=== PATIENT | female | born 1955 | race Caucasian/White ===

== ENCOUNTER → 2021-10-26 | Outpatient (CLI) | payer MEDICARE ==
[2021-10-26 12:19] LABS: HCT 45.7 % (34.0-46.0); HGB 15.1 gm/dL (11.4-16.0); MCH 31.7 pg (25.0-35.0); MCHC 32.9 g/dL (31.0-37.0); MCV 96.2 fL (80.0-100.0); Mean Platelet Volume 7.4; Platelet Count 222 k/uL (150-450); RBC 4.75 m/uL (3.80-5.40); RDW 13.4 % (11.5-15.5); WBC 8.2 k/uL (3.8-10.6)
[2021-10-26 12:34] LABS: Potassium 5.2 mmol/L (3.5-5.1)
== END | disposition home or self-care (01) ==
LOC: LABPAT 11:02
PROVIDERS: ATTEND Internal Medicine Interventional Cardiology
DX: Z01.812 Encounter for preprocedural laboratory examination (principal); I48.19 Other persistent atrial fibrillation
CPT/HCPCS: 36415; 80051; 82565; 84520; 85027

== ENCOUNTER 2021-10-27 06:10 | Day surgery (SDC) | payer MEDICARE ==
[2021-10-26 09:20] VITALS: BMI 34.3
[~2021-10-27 06:10] MED LIST: LACTATED RINGERS 1,000 ML IV SCH; SODIUM CHLORIDE 0.9% 1,000 ML IV SCH
[2021-10-27] MEDS ORDERED: SODIUM CHLORIDE 0.9% 500 ML 500 ML IV ONE (06:50)
[2021-10-27] MEDS ORDERED: PROPOFOL 10 MG/ML 20 ML VIAL IV ONE (07:25)
[2021-10-27 07:51] LABS: Calcium 9.8 mg/dL (8.4-10.2); Potassium 4.2 mmol/L (3.5-5.1)
[2021-10-27 08:10] VITALS: TEMP 96.9
--- NOTE | 2021-10-27 12:54 | PCN ---
PROCEDURE NOTE ELECTRICAL CARDIOVERSION REPORT: DATE OF SERVICE: 10/27/2021 PROCEDURE: Electrical cardioversion. INDICATION: Persistent atrial fibrillation, symptomatic. Mrs. Zena Hdez is a 66-year-old lady with a relatively new-onset symptomatic atrial fibrillation with some decrease in LV function and fatigue, shortness of breath, palpitations. After initiating her on amiodarone and achieving reasonable rate control with full anticoagulation, she was brought in for cardioversion today. Risks, benefits, options and rationale were explained. PROCEDURE NOTE: Under the influence of [id number]-[id number] intravenous anesthetic agent with the attendance of the anesthesiologist, a single 200-joule shock was delivered with anterior and posterior patches. Patient converted to sinus rhythm. She was in sinus bradycardia at 52 beats per minute, hemodynamically stable and neurologically intact. This was a successful electrical cardioversion. She will be discharged later on today and I will see her this Tuesday. She will be on amiodarone 200 mg b.i.d. and I will reduce the metoprolol to 25 mg daily. She will be discharged after she is up and about and ambulatory. MMODL / IJN: [id number] /
[2021-10-27 16:18] VITALS: BP 138/72; PULSE 55; RESP 16
== END 2021-10-27 10:50 | disposition home or self-care (01) ==
LOC: CATHCVL 06:10
PROVIDERS: ATTEND Internal Medicine Interventional Cardiology
DX: I48.19 Other persistent atrial fibrillation (principal); I10 Essential (primary) hypertension; E78.5 Hyperlipidemia, unspecified; E78.00 Pure hypercholesterolemia, unspecified; Z20.822 Contact with and (suspected) exposure to COVID-19; Z82.49 Family history of ischemic heart disease and other diseases of the circulatory system; Z79.01 Long term (current) use of anticoagulants; Z79.899 Other long term (current) drug therapy; Z88.8 Allergy status to other drugs, medicaments and biological substances
CPT/HCPCS: 92960; 80048; 87635; J2704; 93005

== ENCOUNTER → 2023-01-26 | Outpatient (CLI) | payer MEDICARE ==
[2023-01-26 18:26] LABS: African American GFR (CKD) 59.5 (60.0-200.0); Albumin 4.7 g/dL (3.8-4.9); Albumin/Globulin Ratio 2.28 (1.60-3.17); Anion Gap 10.8 mmol/L (10.00-18.00); BUN/Creat Ratio 17.93 Ratio (12.00-20.00); Blood Urea Nitrogen 19.9 mg/dL (9.0-27.0); Calcium 10.2 mg/dL (8.7-10.3); Carbon Dioxide 29.4 mmol/L (20.0-27.5); Globulin 2.1 g/dL (1.6-3.3); Non-African American GFR(CKD) 51.3 (60.0-200.0); Potassium 4.6 mmol/L (3.5-5.5); T4, Free (Free Thyroxine) 1.32 ng/dL (0.800-1.800); Total Bilirubin 0.6 mg/dL (0.30-1.20); Total Protein 6.7 g/dL (6.2-8.2)
== END | disposition home or self-care (01) ==
LOC: LABWHC1 12:16
PROVIDERS: ATTEND Internal Medicine Clinical Cardiac Electrophysiology
DX: I48.91 Unspecified atrial fibrillation (principal)
CPT/HCPCS: 36415; 80053; 84439; 84443

== ENCOUNTER → 2023-02-10 | Outpatient (CLI) | payer MEDICARE ==
[2023-02-11 00:09] LABS: African American GFR (CKD) 60.2 (60.0-200.0); Anion Gap 8.3 mmol/L (10.00-18.00); Blood Urea Nitrogen 16.5 mg/dL (9.0-27.0); Carbon Dioxide 28.7 mmol/L (20.0-27.5); Non-African American GFR(CKD) 51.9 (60.0-200.0); Potassium 5.7 mmol/L (3.5-5.5)
[2023-02-11 01:30] LABS: HCT 46.5 % (37.2-46.3); HGB 14.9 g/dL (12.0-15.0); MCH 30.9 pg (27.0-32.0); MCV 96.5 fL (80.0-97.0); Mean Platelet Volume 10.8 fL (9.5-12.2); NRBC Per 100 WBC 0 /100 WBCS (0.0-0.0); Platelet Count 240 X 10*3/uL (140-440); RBC 4.82 X 10*6/uL (4.10-5.20); RDW 13.1 % (11.5-14.5); WBC 6.37 X 10*3/uL (4.50-10.00)
== END | disposition home or self-care (01) ==
LOC: LABPAT 11:55
PROVIDERS: ATTEND Internal Medicine Clinical Cardiac Electrophysiology
DX: Z01.812 Encounter for preprocedural laboratory examination (principal); I48.0 Paroxysmal atrial fibrillation
CPT/HCPCS: 80051; 82565; 84520; 85027

== ENCOUNTER 2023-02-22 11:12 | Day surgery (SDC) | payer MEDICARE ==
[2023-02-17 12:40] VITALS: BMI 34.7
[~2023-02-22 11:12] MED LIST changes: +DEXAMETHASONE SOD PHOSPHATE 4 MG/ML 1 ML VIAL IV ONE; -LACTATED RINGERS 1,000 ML IV SCH; +LIDOCAINE 1% (10MG/ML) FOR IV START INTRADERMA PRN; +ONDANSETRON 4 MG/2 ML VIAL IVP ONE; +SODIUM CHLORIDE 0.9% 1,000 ML IV ONE; -SODIUM CHLORIDE 0.9% 1,000 ML IV SCH; +fentaNYL (PF) 50 MCG/ML 2 ML AMP IV PRN
[2023-02-22] MEDS ORDERED: HEPARIN SODIUM,PORCINE 10,000 UNIT/ML 1 ML VIAL ONE (13:16)
[2023-02-22] MEDS ORDERED: LIDOCAINE 2% INJ 20 MG/ML (2 ML VIAL) ONE (13:16)
[2023-02-22] MEDS ORDERED: fentaNYL (PF) 50 MCG/ML 2 ML AMP ONE (13:16)
[2023-02-22] MEDS ORDERED: ONDANSETRON 4 MG/2 ML VIAL ONE (13:16)
[2023-02-22] MEDS ORDERED: HEPARIN SOD,PORK IN 0.45% NACL 25,000 UNIT in 0.45% NACL 1 250ML.BAG IV ONE (13:16)
[2023-02-22] MEDS ORDERED: MIDAZOLAM 2 MG/2 ML VIAL ONE (13:16)
[2023-02-22] MEDS ORDERED: PROPOFOL 10 MG/ML 20 ML VIAL IV ONE (13:16)
[2023-02-22] MEDS ORDERED: SUCCINYLCHOLINE CHLORIDE 200 MG/10 ML VIAL IV ONE (13:16)
[2023-02-22] MEDS ORDERED: LIDOCAINE 1% INJ 10MG/ML (20 ML MDV) ONE (13:29)
[2023-02-22] MEDS ORDERED: LIDOCAINE 1% INJ 10MG/ML (20 ML MDV) SQ ONE (13:50)
[2023-02-22] MEDS ORDERED: SODIUM CHLORIDE 0.9% 500 ML 500 ML IV ONE (16:00)
[2023-02-22] MEDS ORDERED: IOPAMIDOL-300 100ML BTL INJ ONE (16:01)
[2023-02-22] MEDS ORDERED: FUROSEMIDE 20 MG TAB PO PRN (16:28)
[2023-02-22] MEDS ORDERED: ACETAMINOPHEN TAB 325 MG TAB PO PRN (16:29)
[2023-02-22] MEDS ORDERED: ACETAMINOPHEN IV (For NPO) 1,000 MG in EMPTY BAG 1 BAG IVPB ONE (16:35)
[2023-02-22] MEDS: SODIUM CHLORIDE 0.9% 1,000 ML IV SCH (17:33)
[2023-02-22] MEDS: LACTATED RINGERS 1,000 ML IV SCH (17:33)
--- NOTE | 2023-02-22 18:51 | P.HPCAR ---
History of Present Illness This is Dr. Shane dictating an H/P on this patient The patient was interviewed and examined IMPRESSION / ASSESSMENT: Persistent atrial fibrillation with tiredness fatigue shortness of breath and presyncope Palpitations associated with RVR Failed treatment with amiodarone and electrical cardioversion Developed a cardiomyopathy, ejection fraction 35%, during atrial fibrillation which improved and normalized during sinus rhythm Hypertension Normal TSH PLAN: A. fib ablation for persistent symptomatic atrial fibrillation HPI Patient continues to complain of palpitations despite amiodarone and rate control medications From time to time she may be presyncopal but has not had syncope denies she complains of tiredness shortness of breath and fatigue ROS: No fever chills or rigors, no cough, phlegm or expectoration, no nausea, vomiting or diarrhea, no hematuria, dysuria, no musculoskeletal complaints, no strokes or seizures, no skin lesions. EXAMINATION: On examination blood pressure is 121/94 mmHg pulse rate is in the low 100s between 100 and 120 beats a minute at rest line afebrile Breath sounds are reduced bilaterally but no rhonchi no crackles Heart sounds are irregular no murmurs No JVD Soft abdomen Extremities warm no edema REVIEW OF LABS, ECG & MEDICAL DATA Medications include hydrochlorothiazide, simvastatin, metoprolol tartrate, losartan, ELIQUIS, amiodarone and Lasix Physical Exam Vitals: Vital Signs Temp Pulse Pulse Pulse Resp BP BP 02/22/23 18:15 69 14 109/71 02/22/23 17:45 67 14 110/72 02/22/23 17:15 98.0 F 64 14 114/72 02/22/23 16:47 59 L 16 02/22/23 16:31 57 L 16 02/22/23 16:16 97 F L 57 L 18 02/22/23 11:37 98.8 F 109 H 16 121/94 BP Pulse Ox 02/22/23 18:15 96 02/22/23 17:45 95 02/22/23 17:15 96 02/22/23 16:47 133/79 98 02/22/23 16:31 133/79 100 02/22/23 16:16 137/80 100 02/22/23 11:37 100 Intake and Output 02/22/23 02/22/23 02/22/23 06:59 14:59 22:59 Intake Total 975 100 Balance 975 100 Intake: IV 975 100 Other: Weight 98.5 kg Past Medical History Past Medical History: Atrial Fibrillation, Atrial Flutter, Cancer, Fibromyalgia, GERD/Reflux, Hyperlipidemia, Hypertension, Musculoskeletal Disorder, O steoarthritis (OA) Additional Past Medical History / Comment(s): hx. endometrial sarcoma, bulging discs, back pain, CRPS(chronic response pain syndrome) History of Any Multi-Drug Resistant Organisms: None Reported Past Surgical History: Hysterectomy, Joint Replacement, Orthopedic Surgery, Tonsillectomy, Tubal Ligation Additional Past Surgical History / Comment(s): arthroscopies mk knees, mk knee replacements, emergent repair of spleen due to tear after colonoscopy, D & C, Past Anesthesia/Blood Transfusion Reactions: No Reported Reaction Smoking Status: Never smoker - Past Family History Brother(s) Family Medical History: Cancer Additional Family Medical History / Comment(s): 1 BROTHER-MELANOMA. 1 BROTHER- THROAT/MOUTH CANCER Sister(s) Family Medical History: Cancer Additional Family Medical History / Comment(s): 1 SISTER-BLADDER CANCER. 1 SISTER-LUNG CANCER Physical Examination Vital Signs Temp Pulse Pulse Pulse Resp BP BP 02/22/23 18:15 69 14 109/71 02/22/23 17:45 67 14 110/72 02/22/23 17:15 98.0 F 64 14 114/72 02/22/23 16:47 59 L 16 02/22/23 16:31 57 L 16 02/22/23 16:16 97 F L 57 L 18 02/22/23 11:37 98.8 F 109 H 16 121/94 BP Pulse Ox 02/22/23 18:15 96 02/22/23 17:45 95 02/22/23 17:15 96 02/22/23 16:47 133/79 98 02/22/23 16:31 133/79 100 02/22/23 16:16 137/80 100 02/22/23 11:37 100 Intake and Output 02/22/23 02/22/23 02/22/23 06:59 14:59 22:59 Intake Total 975 100 Balance 975 100 Intake: IV 975 100 Other: Weight 98.5 kg Results 02/22/23 11:32 Comprehensive Metabolic Panel 02/22/23 Range/Units 11:32 Potassium 4.6 (3.5-5.1) mmol/L Current Medications Generic Name Dose Route Start Last Admin Trade Name Freq PRN Reason Stop Dose Admin Acetaminophen 650 mg 02/22/23 16:29 Acetaminophen Tab 325 Mg Tab PO 03/24/23 16:30 Q6HR PRN Mild Pain (Scale 1 to 3) Amiodarone HCl 100 mg 02/23/23 09:00 Amiodarone 100 Mg Tab PO 03/25/23 09:01 DAILY [facility] Apixaban 5 mg 02/22/23 21:00 Apixaban 5 Mg Tab PO 03/24/23 21:01 BID [facility] Protocol Atorvastatin Calcium 10 mg 02/22/23 21:00 Atorvastatin 10 Mg Tab PO 03/24/23 21:01 [facility] Fentanyl Citrate 50 mcg 02/22/23 07:00 Fentanyl (Pf) 50 Mcg/Ml 2 Ml Amp IV 02/22/23 23:00 Q3M PRN Phase I - Pain Control Furosemide 20 mg 02/22/23 16:28 Furosemide 20 Mg Tab PO 03/24/23 16:29 DAILY PRN Edema Hydrochlorothiazide 25 mg 02/23/23 09:00 Hydrochlorothiazide 25 Mg Tab PO 03/25/23 09:01 DAILY [facility] Sodium Chloride 1,000 mls @ 20 mls/hr 02/22/23 05:54 02/22/23 17:33 Saline 0.9% IV 03/24/23 05:55 Not Given .Q24H [facility] Lactated Ringer's 1,000 mls @ 20 mls/hr 02/22/23 05:54 02/22/23 17:33 Lactated Ringers IV 03/24/23 05:55 Not Given .Q24H [facility] Lidocaine HCl 0.1 ml 02/22/23 05:54 Lidocaine 1% (10mg/Ml) For Iv Start INTRADERMA 03/24/23 05:55 PER PROTOCOL PRN IV Start Losartan Potassium 50 mg 02/23/23 09:00 Losartan 50 Mg Tab PO 03/25/23 09:01 DAILY [facility] Metoprolol Tartrate 50 mg 02/22/23 21:00 Metoprolol Tartrate 50 Mg Tab PO 03/24/23 21:01 BID [facility] Sodium Chloride 12 ml 02/22/23 16:29 Sodium Chloride 0.9% Flush 10 Ml Syringe IV 03/24/23 16:30 Q12HR PRN Line Flush Intake and Output 02/22/23 02/22/23 02/22/23 06:59 14:59 22:59 Intake Total 975 100 Balance 975 100 Intake: IV 975 100 Other: Weight 98.5 kg Patient Weight 02/23/23 06:59 Weight 98.5 kg 02/22/23 11:32
--- NOTE | 2023-02-22 18:55 | P.EPPROC ---
- EP Procedure Note Electrophysiology Procedure Note: PROCEDURE A. fib ablation with pulmonary vein isolation, left atrial roof line and left atrial septal ablation DIAGNOSIS Atrial fibrillation, symptomatic, refractory to therapy, persistent RESULT No left atrial appendage mass seen on intracardiac echo Successful A. fib ablation/pulmonary vein isolation of all veins using cryo- ablation Complete entrance block in all 4 veins confirmed Linear ablation of the left atrial roof Ablation of the left atrial septum No evidence for phrenic nerve injury Esophageal deflection YES Electrical cardioversion with a synchronized shock across the chest YES PROCEDURE DETAILS Written informed consent prior to procedure. Patient brought to the EP lab. General anesthesia given. Heparin administered. A city maintained above 300 seconds Both groins prepped and draped per protocol and venous sheaths placed. Esophagus intubated, circa catheter for temperature monitoring an endoscope for possible esophageal deflection. Phrenic nerve monitoring performed. Esophageal temperature monitoring performed. Esophageal deflection performed if circa catheter overlapping with the balloon or circa temperature less than 27.5C Intracardiac echocardiography performed. Pericardium evaluated. Left atrial appendage evaluated. Left atrium evaluated along with pulmonary veins Transseptal catheterization performed under fluoroscopic guidance and intracardiac echo guidance Cryoablation sheath exchanged, balloon catheter along with achieve catheter placed in the left atrium. Pulmonary veins isolated in the following sequence: Left superior pulmonary vein followed by left inferior pulmonary vein, followed by right inferior pulmonary vein and lastly right superior pulmonary vein. Phrenic nerve stimulation along with capture thresholds within the SVC and right superior pulmonary vein to identify the phrenic nerve proximity to the cryo- balloon. Pulmonary veins isolated and confirmed with entrance and exit block. Phrenic nerve integrity confirmed at the end of the procedure Ablation of the left atrial roof performed with sequential lesions from the left superior to the right superior pulmonary veins. Ablation of the electrograms confirmed Ablation of the left atrial septum performed with cannulation of the superior branch of the right inferior or the inferior branch of the right superior vein to achieve ablation of the posterior septum of the left atrium. Ablation of electrograms confirmed Electrical cardioversion performed for persistence of atrial fibrillation despite successful ablation. Diagnostic catheters for the high right atrium, His bundle, coronary sinus placed. LA and RA pressures recorded RA pressure: 10/8 LA pressure: 16/10 Diagnostic EP study with coronary sinus pacing and recording Baseline measurements: After electrical cardioversion, AH interval 80 ms, HV interval 54 ms QRS 91 ms, AR interval 142 ms and QT interval 380 ms Venous sheaths were removed and hemostasis assured with a closure device. Patient extubated and transferred to recovery PROCEDURES PERFORMED Diagnostic EP study CS pacing and recording Left and right transseptal catheterization Catheter the mapping of the tachycardia Intracardiac echocardiography Pulmonary vein isolation with transseptal and comprehensive EPS, [id number] Left atrial roof line, +[id number] Linear ablation, left atrium septum, +[id number] Electrical cardioversion with a synchronized shock across the chest [id number]
[2023-02-22] MEDS ORDERED: ATORVASTATIN 10 MG TAB PO SCH (21:00)
[2023-02-22] MEDS: METOPROLOL TARTRATE 50 MG TAB PO SCH (22:12)
[2023-02-22] MEDS: APIXABAN 5 MG TAB PO SCH (22:12)
[2023-02-23] MEDS: SODIUM CHLORIDE 0.9% 1,000 ML IV SCH (00:29)
[2023-02-23] MEDS: LACTATED RINGERS 1,000 ML IV SCH (00:29)
[2023-02-23 07:45] VITALS: BP 104/65; PULSE 58; RESP 18; TEMP 97.9
[2023-02-23] MEDS ORDERED: LOSARTAN 50 MG TAB PO SCH (09:00)
[2023-02-23] MEDS: METOPROLOL TARTRATE 50 MG TAB PO SCH (09:00)
[2023-02-23] MEDS: APIXABAN 5 MG TAB PO SCH (09:00)
[2023-02-23] MEDS ORDERED: AMIODARONE 100 MG TAB PO SCH (09:00)
[2023-02-23] MEDS ORDERED: hydroCHLOROthiazide 25 MG TAB PO SCH (09:00)
--- NOTE | 2023-02-23 11:08 | P.DS ---
Providers Attending physician: Wilian Shane Primary care physician: [facility] [place] Hospital Course: This is a 67-year-old female who underwent atrial fibrillation ablation along with electrical cardioversion yesterday with Dr. Shane. Patient is maintaining sinus mechanism this morning. Heart rates are in the 50s. Her home dose of metoprolol has been decreased to 50 mg twice a day. She was instructed to continue all her additional cardiac medications. She was deemed stable for discharge home today by Svitlana. Discharge diagnosis #1 persistent atrial fibrillation, status post ablation and electrocardioversion Nurse practitioner note has been reviewed by physician. Signing provider agrees with the documented findings, assessment, and plan of care. Plan - Discharge Summary Discharge Rx Participant: No New Discharge Prescriptions: New Metoprolol Tartrate [Lopressor] 50 mg PO BID tab Continue Cholecalciferol [Vitamin D3 (25 Mcg = 1000 Iu)] 25 mcg PO DAILY Apixaban [Eliquis] 5 mg PO BID Amiodarone [Cordarone] 100 mg PO DAILY Losartan [Cozaar] 50 mg PO DAILY Simvastatin [Zocor] 10 mg PO HS Loratadine [Claritin] 10 mg PO DAILY PRN PRN Reason: allergies Furosemide [Lasix] 20 mg PO DAILY PRN PRN Reason: Edema hydroCHLOROthiazide [Hydrodiuril] 25 mg PO DAILY Multivit with Calcium,Iron,Min [Women's Multivitamin] 1 each PO DAILY Ascorbic Acid [Vitamin C] 1,000 mg PO DAILY Discontinued Metoprolol Tartrate [Lopressor] 75 mg PO BID Discharge Medication List Apixaban [Eliquis] 5 mg PO BID 10/26/21 [History] Cholecalciferol [Vitamin D3 (25 Mcg = 1000 Iu)] 25 mcg PO DAILY 10/26/21 [History] Furosemide [Lasix] 20 mg PO DAILY PRN 10/26/21 [History] Loratadine [Claritin] 10 mg PO DAILY PRN 10/26/21 [History] Simvastatin [Zocor] 10 mg PO HS 10/26/21 [History] Amiodarone [Cordarone] 100 mg PO DAILY 02/17/23 [History] Ascorbic Acid [Vitamin C] 1,000 mg PO DAILY 02/17/23 [History] Losartan [Cozaar] 50 mg PO DAILY 02/17/23 [History] Multivit with Calcium,Iron,Min [Women's Multivitamin] 1 each PO DAILY 02/17/23 [History] hydroCHLOROthiazide [Hydrodiuril] 25 mg PO DAILY 02/17/23 [History] Metoprolol Tartrate [Lopressor] 50 mg PO BID tab 02/23/23 [Rx] Follow up Appointment(s)/Referral(s): Frantz Grimm MD [STAFF PHYSICIAN] - 03/03/23 2:00 pm (Appontment will be at the [facility] location) Patient Instructions/Handouts: Cardiac Ablation (DC)
== END 2023-02-23 12:00 | disposition home or self-care (01) ==
LOC: CATHEP 11:12 → 6NMEDSUR 15:50 → CATHEP 02-23 12:00
PROVIDERS: ATTEND Internal Medicine Clinical Cardiac Electrophysiology
DX: I48.19 Other persistent atrial fibrillation (principal); K21.9 Gastro-esophageal reflux disease without esophagitis; I10 Essential (primary) hypertension; E78.5 Hyperlipidemia, unspecified; Z85.42 Personal history of malignant neoplasm of other parts of uterus; Z98.51 Tubal ligation status; Z90.710 Acquired absence of both cervix and uterus; Z98.890 Other specified postprocedural states; Z96.653 Presence of artificial knee joint, bilateral; Z80.1 Family history of malignant neoplasm of trachea, bronchus and lung
CPT/HCPCS: 92960; 93656; 93657; 84132; C1894 ×2; C1769 ×4; C1760; C1730 ×2; C1759; C1893; C1733; C1766; J2001; J0131; Q9967; J1644

== ENCOUNTER → 2024-01-24 | Outpatient (CLI) | payer MEDICARE ==
[2024-01-24 16:33] LABS: Blood Urea Nitrogen 17.1 mg/dL (9.0-27.0); Carbon Dioxide 32.4 mmol/L (21.6-31.8); Chloride 95 mmol/L (96-109); HCT 46.7 % (37.2-46.3); HGB 15.4 g/dL (12.0-15.0); MCH 30.8 pg (27.0-32.0); MCV 93.4 FL (80.0-97.0); Magnesium 2.3 mg/dL (1.5-2.4); Mean Platelet Volume 9.9 FL (9.5-12.2); NRBC Per 100 WBC 0 X 10*3/uL (0.00-0.01); Platelet Count 292 X 10*3/uL (140-440); Potassium 4.7 mmol/L (3.5-5.5); Sodium 139 mmol/L (135-145); WBC 9.05 X 10*3/uL (4.50-10.00)
== END | disposition home or self-care (01) ==
LOC: LABPAT 09:53
PROVIDERS: ATTEND Internal Medicine Interventional Cardiology
DX: Z01.812 Encounter for preprocedural laboratory examination (principal); I48.3 Typical atrial flutter
CPT/HCPCS: 36415; 80051; 82565; 83735; 84520; 85027

== ENCOUNTER → 2024-01-25 | Day surgery (SDC) | payer MEDICARE ==
[~2024-01-25] MED LIST changes: -DEXAMETHASONE SOD PHOSPHATE 4 MG/ML 1 ML VIAL IV ONE; +LACTATED RINGERS 1,000 ML IV SCH; -ONDANSETRON 4 MG/2 ML VIAL IVP ONE; -SODIUM CHLORIDE 0.9% 1,000 ML IV ONE; +SODIUM CHLORIDE 0.9% 1,000 ML IV SCH; -fentaNYL (PF) 50 MCG/ML 2 ML AMP IV PRN
[2024-01-25 10:00] VITALS: BP 147/71; PULSE 46; RESP 18; TEMP 96.9
== END ==
LOC: OR 08:47
PROVIDERS: ATTEND Internal Medicine Interventional Cardiology
DX: Z53.8 Procedure and treatment not carried out for other reasons (principal); I48.0 Paroxysmal atrial fibrillation; I10 Essential (primary) hypertension; I42.8 Other cardiomyopathies; Z88.8 Allergy status to other drugs, medicaments and biological substances; Z79.899 Other long term (current) drug therapy

== ENCOUNTER 2024-03-30 06:08 | Day surgery (SDC) | payer MEDICARE ==
[2024-03-28 11:50] VITALS: BMI 31.3
[2024-03-30] MEDS: SODIUM CHLORIDE 0.9% 500 ML 500 ML IV ONE (06:48)
[2024-03-30 07:11] LABS: African American GFR (CKD) 81 (>60 ml/min/1.73 sqM); Anion Gap 4 mmol/L; Blood Urea Nitrogen 15 mg/dL (7-17); Calcium 9.5 mg/dL (8.4-10.2); Carbon Dioxide 31 mmol/L (22-30); Chloride 102 mmol/L (98-107); Glucose 102 mg/dL (74-99); Non-African American GFR(CKD) 70 (>60 ml/min/1.73 sqM); Potassium 3.8 mmol/L (3.5-5.1); Sodium 137 mmol/L (137-145)
[2024-03-30] MEDS ORDERED: LIDOCAINE 1% INJ 10MG/ML (20 ML MDV) ONE (07:30)
[2024-03-30] MEDS ORDERED: PROPOFOL 10 MG/ML 20 ML VIAL IV ONE (07:30)
--- NOTE | 2024-03-30 08:13 | CE ---
CARDIAC ELECTROPHYSIOLOGY REPORT PROCEDURES PERFORMED: Electrical cardioversion. INDICATIONS: Symptomatic atrial tachycardia/atrial fibrillation that has persisted after stopping flecainide. PROCEDURE NOTE: Under the influence of [id number]-ryxmhk intravenous anesthetic, with the attendance of the anesthesiologist, a single shock of 50 joules was delivered to the chest with anterior and posterior patches. The patient converted to sinus rhythm, remained hemodynamically stable and neurologically intact. This was a successful electrical cardioversion. She will continue the same medications upon discharge. She will be discharged after she is ambulatory and has had a snack. I will see her in the office within 1 week. Details were discussed with the patient as well as her . MMODL / IJN: [id number] /
[2024-03-30 08:35] VITALS: TEMP 98
[2024-03-30 08:36] VITALS: RESP 16
[2024-03-30 09:32] VITALS: BP 109/73; PULSE 55
== END 2024-03-30 09:47 | disposition home or self-care (01) ==
LOC: OR 06:08
PROVIDERS: ATTEND Internal Medicine Interventional Cardiology
DX: I48.92 Unspecified atrial flutter (principal); I48.91 Unspecified atrial fibrillation; I42.8 Other cardiomyopathies; Z79.82 Long term (current) use of aspirin; Z79.899 Other long term (current) drug therapy
CPT/HCPCS: 92960; 80048; J2001; J2704

== ENCOUNTER → 2024-05-09 | Outpatient (CLI) | payer MEDICARE ==
[2024-05-09 15:42] LABS: Blood Urea Nitrogen 12.7 mg/dL (9.0-27.0); Chloride 98 mmol/L (96-109); Potassium 4.7 mmol/L (3.5-5.5); Sodium 137 mmol/L (135-145)
[2024-05-09 16:20] LABS: HCT 42.4 % (37.2-46.3); HGB 14.3 g/dL (12.0-15.0); MCH 31.1 pg (27.0-32.0); MCHC 33.7 g/dL (32.0-37.0); MCV 92.2 FL (80.0-97.0); Mean Platelet Volume 10.2 FL (9.5-12.2); NRBC Per 100 WBC 0 X 10*3/uL (0.00-0.01); Platelet Count 214 X 10*3/uL (140-440); RDW 12.4 % (11.5-14.5)
== END | disposition home or self-care (01) ==
LOC: LABPAT 11:14
PROVIDERS: ATTEND Internal Medicine Clinical Cardiac Electrophysiology
DX: Z01.812 Encounter for preprocedural laboratory examination (principal); I48.19 Other persistent atrial fibrillation; I48.92 Unspecified atrial flutter
CPT/HCPCS: 36415; 80051; 82565; 84520; 85027

== ENCOUNTER 2024-05-22 06:10 | Day surgery (SDC) | payer MEDICARE ==
[2024-05-22] MEDS: SODIUM CHLORIDE 0.9% 1,000 ML IV SCH (07:04)
[2024-05-22 07:40] LABS: ALT 19 U/L (4-34); AST 35 U/L (14-36); African American GFR (CKD) >90 (>60 ml/min/1.73 sqM); Albumin 4.8 g/dL (3.5-5.0); Alkaline Phosphatase 48 U/L (38-126); Anion Gap 8 mmol/L; Blood Urea Nitrogen 15 mg/dL (7-17); Carbon Dioxide 29 mmol/L (22-30); Chloride 98 mmol/L (98-107); Glucose 114 mg/dL (74-99); Non-African American GFR(CKD) 78 (>60 ml/min/1.73 sqM); Potassium 3.7 mmol/L (3.5-5.1); Sodium 135 mmol/L (137-145); Total Bilirubin 0.6 mg/dL (0.2-1.3); Total Protein 7.1 g/dL (6.3-8.2)
[2024-05-22] MEDS ORDERED: LIDOCAINE 1% INJ 10MG/ML (20 ML MDV) ONE ×2 (07:49→07:51)
[2024-05-22] MEDS ORDERED: ONDANSETRON 4 MG/2 ML VIAL ONE (07:51)
[2024-05-22] MEDS ORDERED: PHENYLEPHRINE-0.9% NACL SYG 1,000 MCG/10 ML SYRINGE ONE (07:51)
[2024-05-22] MEDS ORDERED: HEPARIN SODIUM,PORCINE 10,000 UNIT/ML 1 ML VIAL ONE (07:51)
[2024-05-22] MEDS ORDERED: NEOSTIGMINE 1 MG/ML 10 ML VIAL ONE (07:51)
[2024-05-22] MEDS ORDERED: PROPOFOL 10 MG/ML 20 ML VIAL IV ONE (07:51)
[2024-05-22] MEDS ORDERED: ROCURONIUM 10 MG/ML (5 ML VIAL) IV ONE (07:51)
[2024-05-22] MEDS ORDERED: PHENYLEPHRINE 10 MG/ML VIAL ONE (07:51)
[2024-05-22] MEDS ORDERED: fentaNYL (PF) 50 MCG/ML 2 ML AMP ONE (07:51)
[2024-05-22] MEDS ORDERED: GLYCOPYRROLATE 0.2 MG/ML 2 ML VIAL ONE (07:51)
[2024-05-22] MEDS ORDERED: MIDAZOLAM 2 MG/2 ML VIAL ONE (07:51)
[2024-05-22] MEDS ORDERED: SUCCINYLCHOLINE CHLORIDE 200 MG/10 ML VIAL IV ONE (07:51)
[2024-05-22] MEDS: LIDOCAINE 1% INJ 10MG/ML (20 ML MDV) SQ ONE (08:49)
[2024-05-22] MEDS: HEPARIN SOD,PORK IN 0.45% NACL 25,000 UNIT in 0.45% NACL 1 250ML.BAG IV ONE (11:00)
[2024-05-22] MEDS ORDERED: FUROSEMIDE 20 MG TAB PO PRN (11:47)
--- NOTE | 2024-05-22 11:47 | P.HPCAR ---
History of Present Illness This is Dr. Shane dictating an H/P on this patient The patient was interviewed and examined IMPRESSION / ASSESSMENT: Persistent atrial fibrillation despite PVI and left atrial roof ablation Failed flecainide A-fib mediated cardiomyopathy PLAN: EP study A-fib ablation HPI Patient continues to remain in atrial fibrillation, complains of palpitation and had a mild cardiomyopathy in response to atrial fibrillation. When she was converted to sinus rhythm LV function improved ROS: No fever chills or rigors, no cough, phlegm or expectoration, no nausea, vomiting or diarrhea, no hematuria, dysuria, no musculoskeletal complaints, no strokes or seizures, no skin lesions. EXAMINATION: Normal heart sounds irregular No murmurs to gallops or rub Breath sounds are clear no rhonchi no crackles No JVD REVIEW OF LABS, ECG & MEDICAL DATA Currently on amlodipine Eliquis Physical Exam Vitals: Vital Signs Temp Pulse Resp BP Pulse Ox 05/22/24 07:02 97.9 F 136 H 18 132/82 97 Intake and Output 05/21/24 05/22/24 05/22/24 22:59 06:59 14:59 Intake Total 100 Balance 100 Intake: IV 100 Other: Weight 86.64 kg Past Medical History Past Medical History: Atrial Fibrillation, Atrial Flutter, Cancer, Fibromyalgia, Hyperlipidemia, Hypertension, Musculoskeletal Disorder, Osteoarthritis (OA), Skin Disorder, Sleep Apnea/CPAP/BIPAP Additional Past Medical History / Comment(s): See Dr. Shane's H&P. hx. endometrial sarcoma about 20 yrs ago, bulging discs, back pain, CRPS(chronic response pain syndrome). "mild" sleep apnea- no CPAP. fatigue & SOB with afib episodes. History of Any Multi-Drug Resistant Organisms: None Reported Past Surgical History: Cardiac Ablation, Hysterectomy, Joint Replacement, Orthopedic Surgery, Tonsillectomy, Tubal Ligation Additional Past Surgical History / Comment(s): arthroscopies mk knees, mk knee replacements, emergent repair of spleen due to tear after colonoscopy, D & C, cardioversions x3 Past Anesthesia/Blood Transfusion Reactions: No Reported Reaction Additional Past Anesthesia/Blood Transfusion Reaction / Comment(s): no hx blood transfusion Smoking Status: Never smoker - Past Family History Brother(s) Family Medical History: Cancer Additional Family Medical History / Comment(s): 1 BROTHER-MELANOMA. 1 BROTHER- THROAT/MOUTH CANCER Sister(s) Family Medical History: Cancer Additional Family Medical History / Comment(s): 1 SISTER-BLADDER CANCER. 1 SISTER-LUNG CANCER Mother Family Medical History: Hypertension Additional Family Medical History / Comment(s): heart problems Father Family Medical History: Hypertension Additional Family Medical History / Comment(s): heart problems Physical Examination Vital Signs Temp Pulse Resp BP Pulse Ox 05/22/24 07:02 97.9 F 136 H 18 132/82 97 Intake and Output 05/21/24 05/22/24 05/22/24 22:59 06:59 14:59 Intake Total 100 Balance 100 Intake: IV 100 Other: Weight 86.64 kg Results 05/22/24 06:50 Cardiac Enzymes 05/22/24 Range/Units 06:50 AST 35 (14-36) U/L Comprehensive Metabolic Panel 05/22/24 Range/Units 06:50 Sodium 135 L (137-145) mmol/L Potassium 3.7 (3.5-5.1) mmol/L Chloride 98 (98-107) mmol/L Carbon Dioxide 29 (22-30) mmol/L BUN 15 (7-17) mg/dL Creatinine 0.78 (0.52-1.04) mg/dL Glucose 114 H (74-99) mg/dL Calcium 10.0 (8.4-10.2) mg/dL AST 35 (14-36) U/L ALT 19 (4-34) U/L Alkaline Phosphatase 48 (38-126) U/L Total Protein 7.1 (6.3-8.2) g/dL Albumin 4.8 (3.5-5.0) g/dL Current Medications Generic Name Dose Route Start Last Admin Trade Name Freq PRN Reason Stop Dose Admin Sodium Chloride 1,000 mls @ 20 mls/hr 05/22/24 05:40 05/22/24 07:04 Saline 0.9% IV 06/21/24 05:41 100 mls .Q24H SHANNON Administration Intake and Output 05/21/24 05/22/24 05/22/24 22:59 06:59 14:59 Intake Total 100 Balance 100 Intake: IV 100 Other: Weight 86.64 kg Patient Weight 05/23/24 06:59 Weight 86.64 kg 05/22/24 06:50
--- NOTE | 2024-05-22 12:12 | P.EPPROC ---
- EP Procedure Note Electrophysiology Procedure Note: Diagnosis Persistent atrial fibrillation despite PVI and left atrial roofline in the past and failed flecainide Final diagnosis Durable pulmonary vein isolation from the past ablation Durable left atrial roof /posterior wall ablation from previous ablation Electrical cardioversion for persistent atrial fibrillation Linear ablation in the left atrial septum just posterior to the transseptal puncture site Left atrial ablation from the septum to the ridge anteriorly Scrotal mapping during atrial extra stimulation with conduction slowing noted along the anterior wall. Anterior mitral line/RF ablation performed Details Patient brought to the EP lab in a fasting state. Written informed consent was obtained prior to the procedure. General anesthesia provided Venous sheaths placed in the right left femoral veins Left and right transseptal catheterization performed RA pressure 9/2/6 mmHg LA pressure 20/3/13 mmHg Patient in atrial fibrillation with slight organization of atrial electrograms intermittently Voltage mapping performed This revealed durable pulmonary vein isolation as well as durable left atrial roof/posterior wall ablation from the last ablation Electrical cardioversion performed Following that RF ablation, Linea in the septum, just posterior to the transseptal puncture This line was joined to the right superior and right inferior veins superiorly and inferiorly Linear ablation performed from this above-mentioned 2 the groove between the left superior pulmonary vein and left atrial appendage Following that high-output pacing performed along the line to confirm completeness of ablation Isopril mapping during atrial extra stimulation just above AERP Isochronic crowding noted on the anterior wall and 2 sites of focal ablation performed At the most superior site, junctional rhythm was noted Atrial pacing revealed normal paced MD interval His bundle pacing revealed that the AV node and His bundle site were distant to the site An anterior mitral line to the mitral ring performed incorporating both these ablation sites Patient tolerated procedure well without any acute complications Venous puncture sites were closed with Vascade closure device Plan Resume Multaq for management of persistent atrial fibrillation in addition to above-mentioned ablations
[2024-05-22] MEDS: ACETAMINOPHEN TAB 325 MG TAB PO PRN (14:16)
[2024-05-22] MEDS: ACETAMINOPHEN IV (For NPO) 1,000 MG in EMPTY BAG 1 BAG IVPB ONE (14:42)
[2024-05-22] MEDS: SODIUM CHLORIDE 0.9% 500 ML 250 ML IV ONE (16:08)
[2024-05-22] MEDS: DRONEDARONE 400 MG TAB PO SCH (16:09)
[2024-05-22] MEDS: ATORVASTATIN 10 MG TAB PO SCH (20:26)
[2024-05-22] MEDS: METOPROLOL TARTRATE 12.5 MG TAB PO SCH (20:26)
[2024-05-22] MEDS: amLODIPine 2.5 MG TAB PO SCH (20:26)
[2024-05-22] MEDS: APIXABAN 5 MG TAB PO SCH (20:26)
--- NOTE | 2024-05-23 07:58 | CA ---
Transthoracic Echo Report Name: Zena Hdez Age: 69 Gender: F : 1955 Exam Date: 05/22/2024 15:07 Exam Location: [facility] Ht (in): 66 Wt (lb): 191 Ordering Physician: Wilian Shane MD ([id number]) Attending/Referring Phys: Front Edger Gricel Blair, ELIECER Procedure CPT: Indications: Hypotension Cardiac Hx: Technical Quality: Fair Contrast 1: Total Dose (mL): Contrast 2: Total Dose (mL): MEASUREMENTS (Male / Female) Normal Values 2D ECHO LV Diastolic Diameter PLAX 4.5 cm 4.2 - 5.9 / 3.9 - 5.3 cm LV Systolic Diameter PLAX 2.5 cm IVS Diastolic Thickness 1.2 cm 0.6 - 1.0 / 0.6 - 0.9 cm LVPW Diastolic Thickness 1.2 cm 0.6 - 1.0 / 0.6 - 0.9 cm LV Relative Wall Thickness 0.5 RV Internal Dim ED PLAX 1.8 cm LA Systolic Diameter LX 4.6 cm 3.0 - 4.0 / 2.7 - 3.8 cm LV Diastolic Volume MOD 4C 81.6 cm??? LV Systolic Volume MOD 4C 32.9 cm??? LV Ejection Fraction MOD 4C 59.7 % LV Cardiac Index MOD 4C 1531.3 cm???/min???m??? LV Diastolic Length 4C 6.5 cm LV Systolic Length 4C 5.2 cm LV Diastolic Volume MOD 2C 70.8 cm??? LV Diastolic Length 2C 6.1 cm M-MODE Aortic Root Diameter MM 3.1 cm LA Systolic Diameter MM 4.8 cm LA Ao Ratio MM 1.6 AV Cusp Separation MM 2.0 cm DOPPLER TR Peak Velocity 252.6 cm/s TR Peak Gradient 25.5 mmHg Right Ventricular Systolic Press 29.9 mmHg FINDINGS Left Ventricle Left ventricular ejection fraction is estimated at 60-65%. Mildly increased septal wall thickness. Mildly increased posterior wall thickness. No obvious regional wall motion abnormalities. Right Ventricle Right ventricular systolic pressure within normal limits. Right Atrium Mild right atrial dilatation. Left Atrium Moderately increased left atrial diameter. Mitral Valve Aortic Valve Tricuspid Valve Pulmonic Valve Pericardium Minimal pericardial effusion. Pericardial effusion located anteriorly. Aorta Normal size aortic root and proximal ascending aorta. CONCLUSIONS Left ventricular ejection fraction 60-65% Mildly increased left ventricular wall thickness RVSP 30 Moderately dilated left atrium Minimal pericardial effusion with no tamponade physiology Previewed by: Dr. Josef Gallardo DO (Electronically Signed) Final Date: 23 May 2024 07:57
[2024-05-23 08:16] VITALS: BP 120/73; PULSE 60; RESP 14; TEMP 98.2
[2024-05-23] MEDS: LOSARTAN 50 MG TAB PO SCH (08:46)
[2024-05-23] MEDS: hydroCHLOROthiazide 25 MG TAB PO SCH (08:46)
[2024-05-23] MEDS: METOPROLOL TARTRATE 25 MG TAB PO SCH (08:46)
[2024-05-23] MEDS ORDERED: METOPROLOL TARTRATE 50 MG TAB PO SCH (09:00)
--- NOTE | 2024-05-24 10:59 | P.DS ---
Providers Attending physician: Wilian Shane Primary care physician: Lin Peralta [facility] Course: Patient is doing well post redo A-fib ablation She had previously undergone an A-fib ablation with PVI and left atrial /posterior wall roof ablation The pulmonary veins were completely isolated and the upper posterior wall was completely quiescent in the left atrium She underwent RF ablation in the septum just posterior to the transseptal puncture site, and anterior roofline along fractionated electrograms and an anterior mitral isthmus line along fractionated electrograms which displayed delayed conduction on Isopril maps made during sinus rhythm with atrial extra stimulation She is doing well Heart sounds are normal Breath sounds are clear No symptoms Groins have healed well Blood pressure is normal Impression Persistent atrial fibrillation status post redo A-fib ablation Plan continue anticoagulation Continue Multaq 400 mg twice daily Follow-up with Dr. Grimm transfer to Plan - Discharge Summary Discharge Rx Participant: No New Discharge Prescriptions: No Action Apixaban [Eliquis] 5 mg PO BID Losartan [Cozaar] 50 mg PO DAILY tiZANidine [Zanaflex] 2 mg PO DIRECTED PRN PRN Reason: Muscle Spasm Amoxicillin 2,000 mg PO DIRECTED PRN PRN Reason: prior to dental procedures onl amLODIPine [Norvasc] 2.5 mg PO HS Simvastatin [Zocor] 10 mg PO HS Furosemide [Lasix] 20 mg PO DAILY PRN PRN Reason: Edema hydroCHLOROthiazide [Hydrodiuril] 25 mg PO DAILY Multivit with Calcium,Iron,Min [Women's Multivitamin] 1 each PO DAILY Ascorbic Acid [Vitamin C] 1,000 mg PO DAILY Metoprolol Tartrate [Lopressor] 25 mg PO DAILY Dronedarone [Multaq] 400 mg PO BID Metoprolol Tartrate [Lopressor] 12.5 mg PO HS Discharge Medication List Apixaban [Eliquis] 5 mg PO BID 10/26/21 [History] Furosemide [Lasix] 20 mg PO DAILY PRN 10/26/21 [History] Simvastatin [Zocor] 10 mg PO HS 10/26/21 [History] Ascorbic Acid [Vitamin C] 1,000 mg PO DAILY 02/17/23 [History] Losartan [Cozaar] 50 mg PO DAILY 02/17/23 [History] Multivit with Calcium,Iron,Min [Women's Multivitamin] 1 each PO DAILY 02/17/23 [History] hydroCHLOROthiazide [Hydrodiuril] 25 mg PO DAILY 02/17/23 [History] Amoxicillin 2,000 mg PO DIRECTED PRN 01/24/24 [History] amLODIPine [Norvasc] 2.5 mg PO HS 01/24/24 [History] tiZANidine [Zanaflex] 2 mg PO DIRECTED PRN 01/24/24 [History] Dronedarone [Multaq] 400 mg PO BID 03/28/24 [History] Metoprolol Tartrate [Lopressor] 25 mg PO DAILY 03/28/24 [History] Metoprolol Tartrate [Lopressor] 12.5 mg PO HS 05/16/24 [History] Follow up Appointment(s)/Referral(s): Frantz Grimm MD [STAFF PHYSICIAN] - 05/29/24 10:15 am Activity/Diet/Wound Care/Special Instructions: Post EP study - Ablation instructions 1. Keep access sites dry for 2 days. 2. No heavy lifting or straining for 2 days. 3. Avoid bending the hips repeatedly for 2 days. 4. You may go up and down stairs slowly Call if the following is noted 1. Bleeding, increasing swelling or pain at the access sites. 2. Increasing chest discomfort, especially upon taking a deep breath. 3. Increasing shortness of breath, at rest or with exertion. 4. Undue cough / phlegm 5. Difficulty or pain while swallowing. 6. Pain or change in color in the extremities. 7. Fever, chills, rigors. 8. Increasing headache or neurologic symptoms. 9. Dizziness, fainting, palpitations Discharge Disposition: HOME SELF-CARE
== END 2024-05-23 09:57 | disposition home or self-care (01) ==
LOC: CATHEP 06:10 → 6NMEDSUR 11:32 → CATHEP 05-23 09:57
PROVIDERS: ATTEND Internal Medicine Clinical Cardiac Electrophysiology
DX: I48.19 Other persistent atrial fibrillation (principal); I48.92 Unspecified atrial flutter; I42.9 Cardiomyopathy, unspecified; M79.7 Fibromyalgia; E78.5 Hyperlipidemia, unspecified; G47.30 Sleep apnea, unspecified; K21.9 Gastro-esophageal reflux disease without esophagitis; I10 Essential (primary) hypertension; Z88.8 Allergy status to other drugs, medicaments and biological substances; Z82.49 Family history of ischemic heart disease and other diseases of the circulatory system; Z79.899 Other long term (current) drug therapy; Z79.01 Long term (current) use of anticoagulants
CPT/HCPCS: 93308; 92960; 93623; 93656; 93657; 86900; 86901; 80053; 84443; 86850; C1759; C1894; C1769 ×3; C1760; C1766; C1730; C1731; C1732; J2001; J1644